=== PATIENT | female | born 1960 | race American Indian/Alaskan Native ===

== ENCOUNTER 2017-08-08 16:20 | Inpatient (IN) | payer OTHER ==
--- NOTE | 2017-08-08 16:33 | PDOC ---
Rapid Medical Evaluation Chief Complaint: Nausea/Vomiting Time Seen by Provider: 08/08/17 16:30 Medical Evaluation: Allergies Allergy/AdvReac Type Severity Reaction Status Date / Time No Known Allergies Allergy Verified 08/08/17 16:29 08/08/17 16:31 The patient presents with a chief complaint of: no urinary complaints, epigastric pain with n/v I have performed a brief in-person evaluation of this patient. Pertinent physical exam findings: vss I have ordered the following: cardiac profile, cbc, comp, lipase, ekg, ua, iv , ivf The patient will proceed to the ED for further evaluation. Discharge Disposition - Diagnosis Epigastric abdominal pain - Referrals - Patient Instructions - Post Discharge Activity
[2017-08-08] MEDS ORDERED: ONDANSETRON 4 MG/2 ML VIAL IVPUSH ONE (16:35)
[2017-08-08] MEDS ORDERED: SODIUM CHLORIDE 1,000 ML IV STA (16:35)
[2017-08-08] MEDS ORDERED: PANTOPRAZOLE SODIUM 40 MG in SODIUM CHLORIDE 100 ML IVPB ONE (16:35)
[2017-08-08 16:36] VITALS: BMI 29.5
--- NOTE | 2017-08-08 16:54 | PDOC ---
Attending Attestation - HPI HPI: 08/08/17 18:12 The patient is a 57 year old female with history of hypertension, hyperlipidemia , borderline DM, ashtma, who presents to the ED complaining of 1 day of RUQ/ epigastric pain that began last night. Abdominal pain is squeezing in nature, intermittent, radiating to the back, ranked 8/10 in intensity, with associated nausea and vomiting x5. She also reports diffuse myalgias and chills. She denies fever. She denies constipation or diarrhea. She denies any chest pain or shortness of breath. - Physicial Exam PE: 08/08/17 18:15 Constitutional: Awake, alert, oriented. No acute distress. Head: Normocephalic. Atraumatic Eyes: PERRL. EOMI. Conjunctivae are not pale. ENT: Mucous membranes are moist and intact. Posterior pharynx without exudates or erythema. Uvula midline. Neck: Supple. Full ROM. No lymphadenopathy. Cardiovascular: Tachycardic rate. Regular rhythm. S1, S2 regular. Distal pulses are 2+ and symmetric. Pulmonary/Chest: No evidence of respiratory distress. Clear to auscultation bilaterally No wheezing, rales or rhonchi. Abdominal: Tenderness to palpation to the RUQ/epigastrium and just over the umbilicus. Soft and non-distended. No rebound, guarding or rigidity. No organomegaly. No palpable masses. Good bowel sounds. Back: No CVA tenderness. Musculoskeletal: No edema. No cyanosis. No clubbing. Full range of motion in all extremities. No calf tenderness. Radial/pedal pulses are intact and 2+ bilaterally Skin: Skin is warm and dry. No petechiae. No purpura. Neurological: Alert and oriented to person, place, and time. Cranial nerves II -XII are grossly intact. Normal speech. Strength is grossly symmetric. No sensory deficits. Psychiatric: Good eye contact. Normal interaction, affect and behavior. - Medical Decision Making 08/08/17 18:20 Documentation prepared by Carmela Ferrell, acting as medical billing specialist for Kathi Vila DO. <Carmela Ferrell - Last Filed: 08/08/17 18:12> - Resident Resident Name: Viviana Martinez - ED Attending Attestation I have performed the following: I have examined & evaluated the patient, The case was reviewed & discussed with the resident, I agree w/resident's findings & plan, Exceptions are as noted - Medical Decision Making 08/08/17 16:54 I, Dr. Kathi Vila, DO, attest that this document has been prepared under my direction and personally reviewed by me in its entirety. I further attest, that it accurately reflects all work, treatment, procedures and medical decision -making performed by me. 08/08/17 18:08 a/p: 57yo female with abd pain assoc with n/v -poss PUD vs gallstones vs pancreatitis vs duodenitis -labs -will start with an ultrasound -medicate for pain along with n/v -pt abd is tender without peritonitis -ivf hydration -will monitor and reassess 08/08/17 21:02 pt with gallstones and sonographic murphys will discuss with surgery and with medicine. pt will be admitted pt updated and agrees with the plan <Kathi Vila - Last Filed: 08/08/17 21:03> Heart Score/ECG Review - ECG Intrepretation Comment:: 08/08/17 18:31 sinus tach at 101, nl axis, nl interval, no acute st/t wave findings <Kathi Vila - Last Filed: 08/08/17 21:03>
--- NOTE | 2017-08-08 16:55 | PDOC ---
History of Present Illness - General Chief Complaint: Nausea/Vomiting Stated Complaint: VOMITING Time Seen by Provider: 08/08/17 16:30 History Source: Patient Exam Limitations: No Limitations - History of Present Illness Initial Comments: This is a 57 YOF with h/o renal stone with lithotripsy last year, HTN, HLD, borderline DM (unmedicated), and asthma who presents with abdominal pain, nausea , and vomiting. The abdominal pain is RUQ and epigastric, radiating to the back , 8/10, squeezing in character, and has been fluctuating since the onset last night. It is relieved after she vomits. She had eaten a healthy dinner a couple of hours prior to the onset of pain (no fried or greasy foods). She had the onset of nausea and vomiting this morning and had five episodes of vomiting food today. She additionally notes head-to-toe body aches and chills, but denies any fever, diarrhea, black or white stool, rectal bleeding, constipation , or burning urination or other urinary symptoms. She has not taken any medications for her symptoms and has never had this kind of pain before. Past History - Past Medical History Allergies/Adverse Reactions: Allergies Allergy/AdvReac Type Severity Reaction Status Date / Time No Known Allergies Allergy Verified 08/08/17 16:29 Home Medications: Ambulatory Orders NK [No Known Home Medication] 08/08/17 CVA: No COPD: No DVT: No HTN: Yes Hypercholesterolemia: Yes Other medical history: Vertigo - Surgical History Cholecystectomy: No (Gallstones) - Immunization History Immunization Up to Date: Yes - Suicide/Smoking/Psychosocial Hx Smoking History: Current every day smoker Number of Cigarettes Smoked Daily: 22 Information on smoking cessation initiated: No Hx Alcohol Use: No Drug/Substance Use Hx: No Substance Use Type: None *Physical Exam - Vital Signs Last Vital Signs Temp Pulse Resp BP Pulse Ox 98.3 F 114 H 125/82 99 08/08/17 16:30 08/08/17 16:30 08/08/17 16:30 08/08/17 16:30 ED Treatment Course - LABORATORY CBC & Chemistry Diagram: 08/08/17 16:30 08/08/17 16:30 Medical Decision Making - Medical Decision Making 57 YOF with h/o who p/w epigastric pain, n/v. Tachycardic to 114 on triage vitals but otherwise VS wnl. DDX IBNLT gallstones/cholecystitis wwo pancreatitis, PUD, gastritis, UTI/ pyelonephritis, AAA, etc. Ordered by RME is CBCD, CMP, lipase, UA, cardiac profile, EKG. 08/08/17 17:45 Ordered is US gallbladder r/o cholecystitis, also 2 mg morphine IVP. CBCD results with WBC in the 15k's, alk phos elevated to 124, lipase negative. 08/08/17 20:37 Patient's US results with cholelithiasis and +sonographic Douglas's sign. Surgery call or contact centre team leader is paged. Patient notes that her PMD is Dr. David (not in our system). Will speak with Dr. Manzo for admission. 08/08/17 20:[address] Douglas who will see the patient for cholecystectomy tomorrow. Spoke with Dr. Manzo who admits to obe med/surg. Ordered is NPO status and 1 gm ceftriaxone IVPB. *DC/Admit/Observation/Transfer Diagnosis at time of Disposition: Cholecystitis - Discharge Dispostion Condition at time of disposition: Guarded Admit: Yes - Referrals - Patient Instructions - Post Discharge Activity
[2017-08-08 17:05] LABS: BASOPHIL 0.5 % (0-2.0); MCHC 33.4 g/dl (32.0-36.0); MEAN CELL VOLUME 86.6 fl (80-96); MEAN PLT VOLUME 8.9 fl (7.5-11.1); NEUTROPHILS 88.3 % (42.8-82.8); PLATELET COUNT 281 K/MM3 (134-434); WHITE BLOOD COUNT 15.5 K/mm3 (4.0-10.0)
[2017-08-08] MEDS ORDERED: PANTOPRAZOLE SODIUM 40 MG/100 ML BAG IVPB ONE (17:20)
[2017-08-08] MEDS ORDERED: ONDANSETRON 4 MG/2 ML VIAL ONE (17:21)
[2017-08-08 17:36] LABS: ALBUMIN 3.9 g/dl (3.4-5.0); ALK PHOS 124 U/L (45-117); ANION GAP 9 (8-16); BILIRUBIN,TOTAL 0.8 mg/dL (0.2-1.0); CO2 24 mmol/L (21-32); CREATININE 0.9 mg/dL (0.55-1.02); GLUCOSE,RANDOM 101 mg/dL (74-106); SGPT/ALT 26 U/L (12-78); TOT PROT 7.8 g/dl (6.4-8.2)
[2017-08-08 17:40] LABS: CPK 96 IU/L (26-192); TROPONIN I < 0.02 ng/ml (0.00-0.05)
[2017-08-08 17:41] LABS: SGOT/AST 19 U/L (15-37)
[2017-08-08] MEDS ORDERED: morphine CARPU-JECT 4 MG/1 ML DISP.SYRIN IVPUSH ONE (17:43)
[2017-08-08] MEDS ORDERED: morphine SULFATE 4 MG/ML VIAL ONE (17:58)
[2017-08-08 19:52] LABS: URINE APPEARANCE SLCLOUDY; URINE BILIRUBIN NEGATIVE (NEGATIVE); URINE BLOOD NEGATIVE (NEGATIVE); URINE COLOR LTYELLOW; URINE GLUCOSE (UA) NEGATIVE (NEGATIVE); URINE KETONE NEGATIVE (NEGATIVE); URINE NITRITE NEGATIVE (NEGATIVE); URINE PROTEIN NEGATIVE (NEGATIVE); URINE UROBILINOGEN NEGATIVE mg/dL (0.2-1.0)
[2017-08-08 20:14] LABS: URINE LEUK ESTERASE 1+ (NEGATIVE)
[2017-08-08 20:15] LABS: URINE BACTERIA RARE /hpf (NONE SEEN); URINE MUCUS RARE; URINE RBC 4 /hpf (0-3); URINE WBC 5 /hpf (3-5)
[2017-08-08] MEDS ORDERED: LEVOFLOXACIN 750 MG IVPB 750 MG/150 ML BAG IVPB ONE (20:51)
[2017-08-08] MEDS ORDERED: PIPERACILLIN/TAZOB 4.5 GM/100 ML PRE-DOCKED IVPB ONE (20:51)
[2017-08-08] MEDS ORDERED: SODIUM CHLORIDE 0.9% 1000 ML INFUS.BAG IV ONE (21:01)
[2017-08-08] MEDS ORDERED: METOCLOPRAMIDE HCL INJECTION 10 MG/2 ML VIAL IVPUSH ONE (21:01)
[2017-08-08] MEDS ORDERED: CEFTRIAXONE 1 GM in DEXTROSE 5%-WATER - 50 ML IVPB ONE (21:03)
[2017-08-08] MEDS ORDERED: METOCLOPRAMIDE HCL INJECTION 10 MG/2 ML VIAL ONE (21:36)
[2017-08-08] MEDS ORDERED: CEFTRIAXONE 1 GM/50 ML BAG ONE (21:37)
--- NOTE | 2017-08-08 22:33 | HP ---
Admitting History and Physical - Primary Care Physician PCP: Sunil Manzo - Admission History of Present Illness: 57 YOF with h/o renal stone with lithotripsy last year, HTN, HLD, borderline DM (unmedicated), and asthma who presents with abdominal pain, nausea, and vomiting. The abdominal pain is RUQ and epigastric, radiating to the back, 8/10 , squeezing in character, and has been fluctuating since the onset last night. It is relieved after she vomits. She had eaten a healthy dinner a couple of hours prior to the onset of pain (no fried or greasy foods). She had the onset of nausea and vomiting this morning and had five episodes of vomiting food today.no fever or chills - Past Medical History Cardiovascular: Yes: HTN, Hyperlipdemia Endocrine: Yes: Diabetes Mellitus - Smoking History Smoking history: Current every day smoker Aproximately how many cigarettes per day: 22 - Alcohol/Substance Use Hx Alcohol Use: No Home Medications - Allergies Allergies/Adverse Reactions: Allergies Allergy/AdvReac Type Severity Reaction Status Date / Time No Known Allergies Allergy Verified 08/08/17 16:29 - Home Medications Home Medications: Ambulatory Orders Albuterol Sulfate Inhaler - [Ventolin HFA Inhaler -] 1 puff IH TID 08/09/17 Aspirin [[place] Aspirin] 81 mg PO DAILY 08/09/17 Atorvastatin Ca [Lipitor] 20 mg PO DAILY 08/09/17 Bupropion HCl [Wellbutrin Sr] 150 mg PO DAILY 08/09/17 Cyanocobalamin (Vitamin B-12) [Vitamin B12] 5,000 mcg DAILY 08/09/17 Ibuprofen 400 mg PO PRN 08/09/17 Lisinopril [Prinivil] 5 mg PO DAILY 08/09/17 Meclizine HCl 25 mg PO TID PRN 08/09/17 Physical Examination Vital Signs: Vital Signs Temperature 98.3 F 08/08/17 16:30 Pulse Rate 114 H 08/08/17 16:30 Respiratory Rate Blood Pressure 125/82 08/08/17 16:30 O2 Sat by Pulse Oximetry (%) 99 08/08/17 16:30 Constitutional: Yes: No Distress HENT: Yes: Atraumatic Neck: Yes: Supple Cardiovascular: Yes: Regular Rate and Rhythm Respiratory: Yes: CTA Bilaterally Gastrointestinal: Yes: Normal Bowel Sounds, Tenderness (ruq) Extremities: Yes: WNL Neurological: Yes: Alert, Oriented Labs: CBC, BMP 08/08/17 16:30 08/08/17 16:30 Imaging - Results Ultrasound: Report Reviewed Problem List - Problems (1) Cholecystitis Assessment/Plan: npo ivf, iv abx..emperic prn pain meds surgery consult Code(s): K81.9 - CHOLECYSTITIS, UNSPECIFIED Assessment/Plan Laboratory Tests 08/08/17 08/08/17 08/08/17 16:30 16:30 16:30 WBC 15.5 H RBC 5.04 Hgb 14.6 Hct 43.6 MCV 86.6 MCH 29.0 MCHC 33.4 RDW 14.0 Plt Count 281 MPV 8.9 Neutrophils % 88.3 H Lymphocytes % 7.9 L Monocytes % 2.3 L Eosinophils % 1.0 Basophils % 0.5 Sodium 136 Potassium 4.3 Chloride 103 Carbon Dioxide 24 Anion Gap 9 BUN 17 Creatinine 0.9 Creat Clearance w eGFR > 60 Random Glucose 101 Calcium 9.0 Total Bilirubin 0.8 AST 19 ALT 26 Alkaline Phosphatase 124 H Creatine Kinase 96 Troponin I < 0.02 Total Protein 7.8 Albumin 3.9 Lipase 115 Urine Color Urine Appearance Urine pH Ur Specific [place] Urine Protein Urine Glucose (UA) Urine Ketones Urine Blood Urine Nitrite Urine Bilirubin Urine Urobilinogen Urine WBC (Auto) Urine RBC (Auto) Ur Epithelial Cells Urine Bacteria Urine Mucus 08/08/17 19:37 WBC RBC Hgb Hct MCV MCH MCHC RDW Plt Count MPV Neutrophils % Lymphocytes % Monocytes % Eosinophils % Basophils % Sodium Potassium Chloride Carbon Dioxide Anion Gap BUN Creatinine Creat Clearance w eGFR Random Glucose Calcium Total Bilirubin AST ALT Alkaline Phosphatase Creatine Kinase Troponin I Total Protein Albumin Lipase Urine Color Ltyellow Urine Appearance Slcloudy Urine pH 7.0 Ur Specific [place] 1.019 Urine Protein Negative Urine Glucose (UA) Negative Urine Ketones Negative Urine Blood Negative Urine Nitrite Negative Urine Bilirubin Negative Urine Urobilinogen Negative Urine WBC (Auto) 5 Urine RBC (Auto) 4 Ur Epithelial Cells Rare Urine Bacteria Rare Urine Mucus Rare Active Medications Generic Name Dose Route Start Last Admin Trade Name Freq PRN Reason Stop Dose Admin Hydromorphone HCl 1 mg 08/08/17 22:34 Dilaudid Injection - IVPB Q3H PRN PAIN Ceftriaxone Sodium 1 gm/ 100 mls @ 200 mls/hr 08/09/17 10:00 Dextrose IVPB 08/09/17 11:59 DAILY RAKESH Sodium Chloride 1,000 mls @ 100 mls/hr 08/08/17 22:45 Normal Saline - IV ASDIR RAKESH
[2017-08-08] MEDS ORDERED: SODIUM CHLORIDE 1,000 ML IV SCH (22:45)
[2017-08-08 23:19] LABS: INR 1.05 (0.82-1.09); PROTHROMBIN TIME (PATIENT) 11.9 SEC (9.98-11.88)
[2017-08-09] MEDS ORDERED: HYDROmorphone HCL CARPU-JECT 1 MG/1 ML DISP.SYRIN ONE (01:45)
[2017-08-09] MEDS: HYDROmorphone HCL CARPU-JECT 2 MG/1 ML DISP.SYRIN IVPB PRN ×2 (01:51→15:55)
[2017-08-09] MEDS ORDERED: ACETAMINOPHEN 325 MG TABLET (FP) PO PRN ×3 (07:12→17:04)
[2017-08-09 07:33] LABS: BASOPHIL 0.3 % (0-2.0); EOSINOPHIL 1.2 % (0-4.5); MCH 29.4 pg (25.7-33.7); MCHC 33.5 g/dl (32.0-36.0); MEAN CELL VOLUME 87.6 fl (80-96); MEAN PLT VOLUME 8.9 fl (7.5-11.1); NEUTROPHILS 63.3 % (42.8-82.8); PLATELET COUNT 242 K/MM3 (134-434); RDW 13.7 % (11.6-15.6)
[2017-08-09 07:56] LABS: INR 1.1 (0.82-1.09); PROTHROMBIN TIME (PATIENT) 12.4 SEC (9.98-11.88)
[2017-08-09 08:02] LABS: CALCIUM 8.2 mg/dL (8.5-10.1)
[2017-08-09 08:08] LABS: ALK PHOS 95 U/L (45-117); ANION GAP 6 (8-16); BILIRUBIN,TOTAL 0.7 mg/dL (0.2-1.0); CO2 25 mmol/L (21-32); CREATININE 0.8 mg/dL (0.55-1.02); GLUCOSE,RANDOM 94 mg/dL (74-106); SGOT/AST 10 U/L (15-37); SGPT/ALT 19 U/L (12-78); TOT PROT 6.2 g/dl (6.4-8.2)
--- NOTE | 2017-08-09 08:34 | CONSULT ---
- Consultation REQUESTING PROVIDER: Dr. Douglas CONSULT REQUEST: We have been asked to surgically evaluate this patient for cholelithiasis PCP:Sunil Manzo HISTORY OF PRESENT ILLNESS: The patient is a 57 yo female who presented with nausea and non-bloody emesis. Her symptoms began yesterday in the am. She denies any CP/SOB. She does have a headache this am, which she has occasional and was treated with tylenol. PMHx: HTN, High cholesterol, tinnitus, asthma, kidney stones PSHx: ?tonsillectomy, procedure for a kidney stone at [facility] Home Medications Medication Instructions Recorded NK [No Known Home Medication] 08/08/17 Allergies Allergy/AdvReac Type Severity Reaction Status Date / Time No Known Allergies Allergy Verified 08/08/17 16:29 REVIEW OF SYSTEMS: CONSTITUTIONAL: Absent: fever, chills CARDIOVASCULAR: Absent: chest pain, syncope, palpitations RESPIRATORY: Absent: cough, shortness of breath, wheezing GASTROINTESTINAL: Present: abdominal pain, nausea. GENITOURINARY: Absent: dysuria, frequency MUSCULOSKELETAL: Absent: myalgia, arthralgia Present: trigger finger b/l middle index SKIN: Absent: rash, itching, pallor HEMATOLOGIC/IMMUNOLOGIC: Abssent: easy bleeding, easy bruising, lymphadenopathy NEUROLOGIC: Present: headache Absent: paresthesias, dizziness bladder or bowel incontinence PHYSICAL EXAM: GENERAL: Awake, alert, and fully oriented, in no acute distress. HEAD: Normal with no signs of trauma. EYES: sclera anicteric, conjunctiva clear. NECK: Normal ROM, supple without lymphadenopathy, JVD, or masses. LUNGS: Clear to auscultation bilat anteriorly. No wheezes, and no crackles. HEART: Regular rate and rhythm. No murmurs ABDOMEN: Soft, tender in the epigastrium, RUQ pain with palpation, not distended MUSCULOSKELETAL: Normal ROM at all joints. No bony deformities or tenderness. No CVA tenderness. UPPER EXTREMITIES: 2+ pulses, warm, well-perfused. b/l middle index trigger finger. LOWER EXTREMITIES: 2+ pulses, warm, well-perfused. No calf tenderness. No peripheral edema. NEUROLOGICAL: Normal speech, gait not observed. PSYCH: Cooperative. Good eye contact. Appropriate mood and affect. SKIN: Warm, dry, normal turgor. Vital Signs Temperature 98.4 F 08/09/17 06:00 Pulse Rate 100 H 08/09/17 06:00 Respiratory Rate 18 08/09/17 06:00 Blood Pressure 146/72 08/09/17 06:00 O2 Sat by Pulse Oximetry (%) 96 08/09/17 06:34 Lab Results WBC 9.0 K/mm3 (4.0-10.0) D 08/09/17 07:20 RBC 4.33 M/mm3 (3.60-5.2) 08/09/17 07:20 Hgb 12.7 GM/dL (10.7-15.3) D 08/09/17 07:20 Hct 37.9 % (32.4-45.2) 08/09/17 07:20 MCV 87.6 fl (80-96) 08/09/17 07:20 MCHC 33.5 g/dl (32.0-36.0) 08/09/17 07:20 RDW 13.7 % (11.6-15.6) 08/09/17 07:20 Plt Count 242 K/MM3 (134-434) 08/09/17 07:20 Sodium 137 mmol/L (136-145) 08/09/17 07:20 Potassium 3.8 mmol/L (3.5-5.1) 08/09/17 07:20 Chloride 106 mmol/L (98-107) 08/09/17 07:20 Carbon Dioxide 25 mmol/L (21-32) 08/09/17 07:20 Anion Gap 6 (8-16) L 08/09/17 07:20 BUN 12 mg/dL (7-18) D 08/09/17 07:20 Creatinine 0.8 mg/dL (0.55-1.02) 08/09/17 07:20 Random Glucose 94 mg/dL (74-106) 08/09/17 07:20 Calcium 8.2 mg/dL (8.5-10.1) L 08/09/17 07:20 Blood Type O POSITIVE 08/09/17 01:35 Antibody Screen Negative 08/08/17 22:44 INR 1.05 (0.82-1.09) 08/08/17 22:44 US: stones, no evidence of acute jose roberto Problem List - Problems (1) Cholecystitis Assessment/Plan: Pt with cholelithiasis, plan for lap jose roberto today. She remains npo/iv hydration Medical clearance for the operating room today She received rocephin at 9 pm last night Code(s): K81.9 - CHOLECYSTITIS, UNSPECIFIED Visit type - Case Type Case Type: ED Admission - Emergency Emergency Visit: Yes ED Registration Date: 08/08/17 Care time: The patient presented to the Emergency Department on the above date and was hospitalized for further evaluation of their emergent condition. - New patient This patient is new to me today: Yes Date on this admission: 08/09/17
[2017-08-09] MEDS ORDERED: CEFTRIAXONE 1 G/50 ML PREMIX 50 ML IVPB SCH (10:00)
--- NOTE | 2017-08-09 10:39 | EKG ---
Test Reason : Blood Pressure : / mmHG Vent. Rate : 101 BPM Atrial Rate : 101 BPM P-R Int : 170 ms QRS Dur : 070 ms QT Int : 334 ms P-R-T Axes : 066 050 028 degrees QTc Int : 433 ms POOR DATA QUALITY, INTERPRETATION MAY BE ADVERSELY AFFECTED SINUS TACHYCARDIA NONSPECIFIC ST ABNORMALITY LOW VOLTAGE QRS BORDERLINE ECG NO PREVIOUS ECGS AVAILABLE Confirmed by MD GAGAN, ROBERTO ([id number]) on 08/09/2017 10:39:11 AM Referred By: Confirmed By:ROBERTO FARAH MD
--- NOTE | 2017-08-09 11:36 | CON.CARD ---
Cardiology Consult (text) - Consultation Consultation Note: CC: cholecystitis 57 yo smoker with h/o HTN, HLD, renal stone with lithotripsy last year, borderline DM (unmedicated), vertigo and asthma who presents with abdominal pain and concern for cholecystitis --> plan for surgery. + nausea, and vomiting. 5 episodes of vomiting since sx's started this am. The abdominal pain is RUQ and epigastric, radiating to the back, 8/10, squeezing in character, and has been fluctuating since the onset last night. It is relieved after she vomits. She had eaten a healthy dinner a couple of hours prior to the onset of pain (no fried or greasy foods). + body aches and chills, but denies any fever, diarrhea, black or white stool, rectal bleeding, constipation, or burning urination or other urinary symptoms. no cp, sob, orthopnea, pnd, le edema, palps, dizziness, transient neurologic sx' s. No h/o insulin use, ckd, cad, chf, tia/cva. Patient taken to surgery today. --> no complications. received 1300 cc of fluids. Since surgery. + mild discomfort. + dizziness. pmhx/pshx: per hi social hx: + tobacco fam hx: no premature cad ros: per hpi Ambulatory Orders Albuterol Sulfate Inhaler - [Ventolin Hfa Inhaler -] 1 puff IH TID 08/09/17 Aspirin [[place] Aspirin] 81 mg PO DAILY 08/09/17 Atorvastatin Ca [Lipitor] 20 mg PO DAILY 08/09/17 Bupropion HCl [Wellbutrin Sr] 150 mg PO DAILY 08/09/17 Cyanocobalamin (Vitamin B-12) [Vitamin B12] 5,000 mcg DAILY 08/09/17 Ibuprofen 400 mg PO PRN 08/09/17 Lisinopril [Prinivil] 5 mg PO DAILY 08/09/17 Meclizine HCl 25 mg PO TID PRN 08/09/17 Current Medications Acetaminophen (Tylenol -) 650 mg PO Q6H PRN PRN Reason: FEVER OR PAIN Last Admin: 08/09/17 07:20 Dose: 650 mg Hydromorphone HCl (Dilaudid Injection -) 1 mg IVPB Q3H PRN PRN Reason: PAIN Last Admin: 08/09/17 01:51 Dose: 1 mg CEFTRIAXONE 1 G/50 ML PREMIX (Ceftriaxone 1 Gm-D5w Bag) 50 mls @ 100 mls/hr IVPB DAILY [facility] Last Admin: 08/09/17 10:08 Dose: 100 mls/hr Sodium Chloride (Normal Saline -) 1,000 mls @ 100 mls/hr IV ASDIR [facility] Last Admin: 08/08/17 23:20 Dose: 100 mls/hr Vital Signs - 24 hr 08/08/17 08/08/17 08/09/17 16:30 22:36 02:10 Temperature 98.3 F 98.6 F 98.4 F Pulse Rate 114 H 104 H Pulse Rate [ 94 H Apical] Respiratory 16 18 Rate Blood Pressure 125/82 152/76 Blood Pressure 131/61 [Left Arm] O2 Sat by Pulse 99 98 Oximetry (%) 08/09/17 08/09/17 06:00 06:34 Temperature 98.4 F Pulse Rate 100 H Pulse Rate [ Apical] Respiratory 18 Rate Blood Pressure 146/72 Blood Pressure [Left Arm] O2 Sat by Pulse 96 Oximetry (%) 08/09/17 08/09/17 08/09/17 14:29 14:45 15:00 Temperature 98.3 F Pulse Rate 94 H 88 89 Respiratory 16 16 16 Rate Blood Pressure 175/94 158/95 160/87 O2 Sat by Pulse 100 96 96 Oximetry (%) 08/09/17 08/09/17 08/09/17 15:15 15:30 15:45 Temperature Pulse Rate 92 H 95 H 92 H Respiratory 16 16 16 Rate Blood Pressure 147/83 162/82 135/79 O2 Sat by Pulse 99 100 98 Oximetry (%) 08/09/17 08/09/17 08/09/17 16:00 16:15 16:30 Temperature Pulse Rate 94 H 92 H 95 H Respiratory 16 16 16 Rate Blood Pressure 134/84 134/84 150/89 O2 Sat by Pulse 99 98 99 Oximetry (%) 08/09/17 08/09/17 08/09/17 16:45 17:00 17:32 Temperature 97.9 F 97.9 F Pulse Rate 93 H 94 H 97 H Respiratory 16 16 18 Rate Blood Pressure 131/90 149/79 150/90 O2 Sat by Pulse 98 99 99 Oximetry (%) Intake & Output 08/07/17 08/08/17 08/09/17 08/10/17 07:59 07:59 07:59 07:59 Intake Total 500 Output Total 1 Balance 499 Weight 165 lb 6.4 oz NAD, calm JVD flat, neck supple ctab, nl effort rrr nl s1, s2 no m/r/g + bs soft mildly tender, nd. ext without e/c/c + dp/pt aaox3 no carotid bruits no jaundice, diaphoresis CBC, BMP 08/09/17 07:20 08/09/17 07:20 Laboratory Tests 08/09/17 07:20 Total Bilirubin 0.7 AST 10 L D ALT 19 D Alkaline Phosphatase 95 D Albumin 3.0 L D 08/08/17 16:30 Creatine Kinase 96 Troponin I < 0.02 Lipase 115 EKG: sinus tachycardia, low voltage qrs. non-specific st-twave abnormality. cxr: wnl 57 yo smoker with h/o HTN, HLD, renal stone with lithotripsy last year, borderline DM (unmedicated), vertigo and asthma who presents with abdominal pain and concern for cholecystitis --> s/p surgery today. cholecystitis s/p surgery today - no complications. - bp slightly elevated, but patient in mild discomfort. will resume anti- hypertensives in the morning. pain control per surgery/pmd. HR reasonably controlled given clinical condition. con't to monitor. htn -as above. hl - consider resuming statin tomorrow if able to take PO + tobacco - cessation counseling.
[2017-08-09 12:09] LABS: URINE LEUK ESTERASE Negative (NEGATIVE)
[2017-08-09] MEDS ORDERED: BUPIVACAINE HCL/PF 0.5% (5MG/ML) 10 ML VIAL ONE (12:55)
[2017-08-09] MEDS ORDERED: MIDAZOLAM HCL 2 MG/2 ML SINGLE DOSE VIAL ONE (13:11)
[2017-08-09] MEDS ORDERED: fentaNYL CITRATE 250 MCG/5 ML VIAL ONE (13:12)
[2017-08-09] MEDS ORDERED: PROPOFOL 20 ML ONE (13:12)
[2017-08-09] MEDS ORDERED: ROCURONIUM BROMIDE 50 MG/5 ML VIAL ONE (13:13)
[2017-08-09] MEDS ORDERED: BUPIVACAINE HCL/PF 0.5% (5MG/ML) 10 ML VIAL IJ ONE (13:48)
[2017-08-09] MEDS ORDERED: GLYCOPYRROLATE 0.2 MG/1 ML VIAL ONE (14:01)
[2017-08-09] MEDS ORDERED: LIDOCAINE HCL 2% JELLY (5 ML/TUBE) ONE (14:01)
[2017-08-09] MEDS ORDERED: DEXAMETHASONE SOD PHOSPHATE 4 MG/1 ML VIAL ONE (14:01)
[2017-08-09] MEDS ORDERED: NEOSTIGMINE METHYLSULFATE 0.5 MG/ML - 10 ML MDV ONE (14:01)
[2017-08-09] MEDS ORDERED: KETOROLAC TROMETHAMINE 30 MG/1 ML VIAL ONE (14:01)
--- NOTE | 2017-08-09 14:34 | OP ---
Operative Note - Note: Operative Date: 08/09/17 Pre-Operative Diagnosis: acute cholecystitis/cholelithiasis Operation: lap jose roberto Findings: acute cholecystitis/cholelithiasis Post-Operative Diagnosis: Same as Pre-op Surgeon: Shubham Douglas Electric Meter Installer Helper: River Link Anesthesia: General Specimens Removed: gallbladder and contents Estimated Blood Loss (mls): 20
--- NOTE | 2017-08-09 15:27 | SURG ---
Surgery Curing Pickling Packer Note Curing Pickling Packer: River Link PA-C Date of Service: 08/09/17 Diagnosis: acute cholecystitis/cholelithiasis Procedure: Laparoscopic cholecystectomy I was present for the entirety of the operative procedure. For further detail, please refer to operative report. Visit type - Case Type Case Type: ED Admission - New patient This patient is new to me today: Yes Date on this admission: 08/09/17
[2017-08-09] MEDS ORDERED: LABETALOL HCL 5 MG/1 ML (100MG/20 ML VIAL) IVPUSH ONE (15:30)
[2017-08-09] MEDS ORDERED: HYDROmorphone HCL CARPU-JECT 2 MG/1 ML DISP.SYRIN ONE (15:48)
[2017-08-09] MEDS ORDERED: oxyCODONE HCL 5 MG TABLET PO PRN (17:04)
[2017-08-09] MEDS: LACTATED RINGERS SOLUTION 1,000 ML/1,000 ML INFUS.BAG IV SCH ×2 (17:31→23:10)
--- NOTE | 2017-08-09 20:56 | PN ---
Progress Note, Physician History of Present Illness: s/p surgery - Current Medication List Current Medications: Active Medications Acetaminophen (Tylenol -) 650 mg PO Q6H PRN PRN Reason: FEVER OR PAIN Acetaminophen (Tylenol -) 650 mg PO Q6H PRN PRN Reason: PAIN LEVEL 6-10 Lactated Ringer's (Lactated Ringers Solution) 1,000 ml in 1,000 mls @ 75 mls/ hr IV ASDIR RAKESH Last Admin: 08/09/17 17:31 Dose: Not Given Oxycodone HCl (Roxicodone -) 10 mg PO Q6H PRN PRN Reason: PAIN LEVEL 6-10 - Objective Vital Signs: Vital Signs Temperature 97.9 F 08/09/17 17:32 Pulse Rate 97 H 08/09/17 17:32 Respiratory Rate 18 08/09/17 17:32 Blood Pressure 150/90 08/09/17 17:32 O2 Sat by Pulse Oximetry (%) 99 08/09/17 17:32 Constitutional: Yes: No Distress HENT: Yes: Atraumatic Neck: Yes: Supple Cardiovascular: Yes: Regular Rate and Rhythm Respiratory: Yes: CTA Bilaterally Gastrointestinal: Yes: Tenderness (at the surgery site) Extremities: Yes: WNL Neurological: Yes: Alert, Oriented Labs: CBC, BMP 08/09/17 07:20 08/09/17 07:20 INR, PTT INR 1.10 (0.82-1.09) 08/09/17 07:20 Problem List - Problems (1) Cholecystitis Assessment/Plan: s/p surgery prn pain meds on clear liquid diet Code(s): K81.9 - CHOLECYSTITIS, UNSPECIFIED (2) Status post laparoscopic cholecystectomy Code(s): Z90.49 - ACQUIRED ABSENCE OF OTHER SPECIFIED PARTS OF DIGESTIVE TRACT
--- NOTE | 2017-08-10 09:25 | PN ---
Progress Note (short form) - Note Progress Note: Attending Surgeon POD #1 s/p lap jose roberto c/o epigastric port site pain; tolerated diet and voided VSS AF abdomen-soft; port site dressings c/d/i; post op changes are present; o/w negative. IMP: doing well post op PLAN: surgically stable for discharge and f/u in my office 7-10 days post op; d/ w patient and her sister. Shubham Douglas MD FACS
--- NOTE | 2017-08-10 11:52 | DS ---
Physical Examination Vital Signs: Vital Signs Temperature 97.4 F L 08/10/17 10:00 Pulse Rate 95 H 08/10/17 10:09 Respiratory Rate 20 08/10/17 10:09 Blood Pressure 153/89 08/10/17 10:09 O2 Sat by Pulse Oximetry (%) 99 08/10/17 06:00 Constitutional: Yes: No Distress HENT: Yes: Atraumatic Neck: Yes: Supple Cardiovascular: Yes: Regular Rate and Rhythm Respiratory: Yes: CTA Bilaterally Gastrointestinal: Yes: Normal Bowel Sounds, Tenderness (at the surgery site) Extremities: Yes: WNL Neurological: Yes: Alert, Oriented Labs: CBC, BMP 08/09/17 07:20 08/09/17 07:20 Discharge Summary Reason For Visit: CHOLECYSTITIS Current Active Problems Cholecystitis (Acute) Status post laparoscopic cholecystectomy (Acute) Condition: Guarded - Instructions Diet, Activity, Other Instructions: soft low fat diet tylenol for pain as neede see surgeon 1 week No heavy lifting, report any fever 101 or over to MD Referrals: Shubham Douglas MD [Staff Physician] - 1 Week STAFF,NOT ON [Primary Care Provider] - Disposition: HOME - Home Medications Comprehensive Discharge Medication List: Ambulatory Orders Albuterol Sulfate Inhaler - [Ventolin HFA Inhaler -] 1 puff IH TID 08/09/17 Aspirin [[place] Aspirin] 81 mg PO DAILY 08/09/17 Atorvastatin Ca [Lipitor] 20 mg PO DAILY 08/09/17 Bupropion HCl [Wellbutrin Sr] 150 mg PO DAILY 08/09/17 Cyanocobalamin (Vitamin B-12) [Vitamin B12] 5,000 mcg DAILY 08/09/17 Ibuprofen 400 mg PO PRN 08/09/17 Lisinopril [Prinivil] 5 mg PO DAILY 08/09/17 Meclizine HCl 25 mg PO TID PRN 08/09/17 cleared by surgery to be dc home
[2017-08-10] MEDS ORDERED: LISINOPRIL 5 MG TABLET (FP) PO SCH (12:30)
[2017-08-10 15:10] VITALS: BP 136/82; PULSE 92; TEMP 97.5
--- NOTE | 2017-08-12 11:36 | PATH ---
Surgical Pathology Report Patient Name: TIFFANY MAYORGA Med. Rec. #: [id number] /Age/Gender: 1960 (Age: 57) / F Account: [id number] Location: [facility] MED/SURG Taken: 08/09/2017 Received: 08/09/2017 Reported: 08/12/2017 Physicians: MD Sunil Rutledge M.D. Specimen(s) Received GALLBLADDER Clinical History Cholecystitis Final Diagnosis GALLBLADDER, CHOLECYSTECTOMY: CHRONIC CHOLECYSTITIS AND CHOLELITHIASIS. AREA WITH DIVERTICULA FORMATION PRESENT CONSISTENT WITH "ADENOMYOMA". BENIGN PERICYSTIC LYMPH NODE PRESENT. Electronically Signed Tushar Parker M.D. Gross Description Received in formalin, labeled "gallbladder," is a 6.2 x 2.2 x 1.5 cm. gallbladder with a 0.2 cm. in length portion of cystic duct attached. There is a 0.9 cm greatest dimension periductal lymph node present. The outer surface is olivarez-pink and varies from smooth to shaggy. The lumen contains green, tenacious bile as well as a single 0.4 cm in greatest dimension black, irregular cholelith. The mucosa is olivarez-green and velvety. The fundus displays submucosal cystic spaces. The wall of the gallbladder averages 0.2 cm. in thickness. Clinical Fellow sections are submitted in 2 cassettes as follows: 1-cystic duct margin, periductal lymph node and parts counter representative gallbladder; 2-fundus. 08/09/201708/09/2017
--- NOTE | 2017-08-12 18:57 | OP ---
DATE OF OPERATION: 08/09/2017 PREOPERATIVE DIAGNOSES: 1. Cholelithiasis. 2. Chronic cholecystitis. 3. Biliary colic. POSTOPERATIVE DIAGNOSES: 1. Cholelithiasis. 2. Chronic cholecystitis. 3. Biliary colic. PROCEDURE: Laparoscopic cholecystectomy. SURGEON: Shubham Douglas MD PAD ASSEMBLER: River Link PA-C ANESTHESIA: General. OPERATIVE FINDINGS: Chronic cholecystitis and cholelithiasis. The rest of the findings were unremarkable. DESCRIPTION OF PROCEDURE: The patient was placed on the operating table in the supine position, and after the induction of general anesthesia, the patient's abdomen was prepped with ChloraPrep and draped in sterile fashion. A timeout was taken and pneumoperitoneum established above the umbilicus using a Veress needle to an intraabdominal pressure of 15 mmHg. Additional subxiphoid and right lateral abdominal wall ports were placed and laparoscopy carried out. The gallbladder was placed on cephalad and lateral traction, and dissection was then begun in the hepatocystic triangle where the peritoneum over the distal gallbladder was opened using a combination of blunt dissection and electrocautery. The cystic duct was identified and dissected proximally and distally for length, as was the cystic artery. A critical view of safety was taken, and then, the duct and artery were serially clipped twice distally and twice proximally with large hemoclips. The duct and artery were then divided using the EndoShears. Hemostasis was checked for and noted to be good, and then, the gallbladder was removed from the liver bed in a retrograde fashion using electrocautery. Prior to removal from the edge of the liver, hemostasis was checked for and noted to be good again, and then, the gallbladder was removed from the edge of the liver, placed in a specimen retrieval bag, and the gallbladder brought out through the subxiphoid port. It was sent for pathological examination. Pneumoperitoneum was re-established, and irrigation was carried out and hemostasis verified again. All ports were then removed under laparoscopic vision without evidence of bleeding from the port sites and the pneumoperitoneum evacuated. The port sites were infiltrated with 0.50% Marcaine and closed in all instances using 4-0 Monocryl in a subcuticular continuous fashion, followed by Steri-Strips and Band-Aid dressings. The procedure was terminated at this point, and the patient was transferred to the postanesthesia care unit. ESTIMATED BLOOD LOSS: 20 mL REPLACEMENTS: Crystalloid. DRAINS: None. SPECIMENS: Gallbladder and contents to Pathology. I, Shubham Douglas MD, was physically present in the operating room from the time the patient was placed on the operating table until she was transferred to the postanesthesia care unit in my accompaniment. Shubham Douglas MD [id number] MTDD
== END 2017-08-10 15:40 | disposition home or self-care (01) | DRG 263 ==
LOC: JER 16:20 → JERBED 20:58 → J8W 08-09 02:41 → OBSVTOIN 08-09 18:11
PROVIDERS: ADMIT Internal Medicine; ATTEND Internal Medicine
PROC: 0FT44ZZ Resection of Gallbladder, Percutaneous Endoscopic Approach (ICD-10-PCS; principal; 2017-08-09 12:00)
DX: K80.10 Calculus of gallbladder with chronic cholecystitis without obstruction (principal); I10 Essential (primary) hypertension; E78.5 Hyperlipidemia, unspecified; R73.03 Prediabetes; J45.909 Unspecified asthma, uncomplicated; R10.11 Right upper quadrant pain; F17.210 Nicotine dependence, cigarettes, uncomplicated
CPT/HCPCS: 36415; 71010-TC; 76705-TC; 80053; 81003; 81015; 82550; 83690; 84484; 85025; 85610; 85730; 86850; 86900; 86901; 87086; 88304-TC; 93005; 93010; 99284-25; G0378

== ENCOUNTER 2018-05-18 04:41 | Emergency (ER) | payer OTHER ==
--- NOTE | 2018-05-18 05:23 | PDOC ---
Attending Attestation - Resident Resident Name: Patric Workman - ED Attending Attestation I have performed the following: I have examined & evaluated the patient, The case was reviewed & discussed with the resident, I agree w/resident's findings & plan, Exceptions are as noted - HPI HPI: 05/18/18 05:31 58y F hx of htn, hl, sciatica, asthma presents with atraumatic L leg pain x 1 week, gradually worsening, desribes as a burning type pain in the L lower leg that radiates up her leg worse with lying flat and improved with sitting. No recent trauma/falls. No associated fever/chills, back pain, cp, sob.
[2018-05-18] MEDS ORDERED: GABAPENTIN 300 MG CAPSULE (FP) PO ONE (05:26)
[2018-05-18 05:29] VITALS: BMI 27.3
[2018-05-18] MEDS ORDERED: KETOROLAC TROMETHAMINE 30 MG/1 ML VIAL IVPUSH ONE (05:30)
[2018-05-18] MEDS ORDERED: KETOROLAC TROMETHAMINE 30 MG/1 ML VIAL ONE (05:33)
[2018-05-18] MEDS ORDERED: GABAPENTIN 100 MG CAPSULE (FP) ONE (05:33)
--- NOTE | 2018-05-18 05:36 | PDOC ---
History of Present Illness - General Chief Complaint: Pain, Acute Stated Complaint: RIGHT LEG PAIN Time Seen by Provider: 05/18/18 04:58 History Source: Patient, Family - History of Present Illness Initial Comments: 05/18/18 05:34 58 y/o f with PMH of sciatica, htn, hld came to hospital because of pain in her lateral aspect of right leg which started one week ago and progressively increasing, its 10/10 in intensity, radiate from lower part of leg to upward, increase on lying flat and decrease when she sits, pain in crushing type. denies trauma to keg. Denies skin discolortaion, denies swelling of leg. denies fever and chills. Denies recent travel. Patient also reports numbness on lateral aspect of leg. Denies fecal and urine incontinence. Patient smoked for 15 yeasr about 25 cig a day and stopped one month ago. Past History - Past Medical History Allergies/Adverse Reactions: Allergies Allergy/AdvReac Type Severity Reaction Status Date / Time No Known Allergies Allergy Verified 05/18/18 05:23 Home Medications: Ambulatory Orders Albuterol Sulfate Inhaler - [Ventolin HFA Inhaler -] 1 puff IH TID 08/09/17 Aspirin [[place] Aspirin] 81 mg PO DAILY 08/09/17 Atorvastatin Ca [Lipitor] 20 mg PO DAILY 08/09/17 Bupropion HCl [Wellbutrin Sr] 150 mg PO DAILY 08/09/17 Ibuprofen 400 mg PO PRN 08/09/17 Lisinopril [Prinivil] 5 mg PO DAILY 08/09/17 Meclizine HCl 25 mg PO TID PRN 08/09/17 CVA: No COPD: No DVT: No HTN: Yes Hypercholesterolemia: Yes Kidney Stones: Yes - Surgical History Cholecystectomy: Yes (Gallstones) - Immunization History Immunization Up to Date: Yes - Suicide/Smoking/Psychosocial Hx Smoking History: Never smoked Have you smoked in the past 12 months: No Number of Cigarettes Smoked Daily: 22 Information on smoking cessation initiated: No Hx Alcohol Use: No Drug/Substance Use Hx: No Substance Use Type: None Review of Systems - Review of Systems Constitutional: No: Chills, Fever Respiratory: No: Symptoms reported, Cough, Wheezing Cardiac (ROS): No: Chest Pain, Irregular Heart Rate, Lightheadedness, Palpitations ABD/GI: No: Abdominal Distended, Diarrhea, Vomiting : No: Burning, Dysuria, Discharge Neurological: No: Headache, Numbness *Physical Exam - Vital Signs Last Vital Signs Temp Pulse Resp BP Pulse Ox 97.5 F L 87 16 152/91 98 05/18/18 04:45 05/18/18 04:45 05/18/18 04:45 05/18/18 04:45 05/18/18 04:45 - Physical Exam General Appearance: Yes: Appropriately Dressed HEENT: positive: EOMI Neck: positive: Supple Respiratory/Chest: positive: Lungs Clear, Normal Breath Sounds. negative: Respiratory Distress Cardiovascular: positive: Regular Rhythm, Regular Rate, S1, S2 Gastrointestinal/Abdominal: positive: Soft. negative: Tenderness Extremity: positive: Other (tenderness on lateral aspect of right leg, pain increased on lying flat, leg raise test negative, sensation to fine touch intact , motor strenght 5/5. peripharal pulses palpable no erythema, no calf tenderness. 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 II-XII NML intact, Fully Oriented, Alert, Normal Mood/ Affect, Normal Response, Motor Strength 5/5 ED Treatment Course - LABORATORY CBC & Chemistry Diagram: 05/18/18 05:43 05/18/18 05:43 - RADIOLOGY Radiology Studies Ordered: Category Date Time Status LEG TIB/FIB-RIGHT [RAD] Stat Radiology 05/18/18 05:33 Ordered Medical Decision Making - Medical Decision Making 05/18/18 05:45 58 y/o f with PMH of sciatica, htn, hld came to hospital because of pain in her lateral aspect of right leg which started one week ago and progressively increasing, its 10/10 in intensity, radiate from lower part of leg to upward, increase on lying flat and decrease when she sits, pain in crushing type. denies trauma to keg. Denies skin discolortaion, denies swelling of leg. denies fever and chills. Denies recent travel. Patient also reports numbness on lateral aspect of leg. Denies fecal and urine incontinence. Patient smoked for 15 yeasr about 25 cig a day and stopped one month ago. we will order cbc. cmp xray right leg. cpk, mg, duplex we will give toradol and gabapentin Patient likely have neuropathic pain in distribution of superficial peroneal nerve which can occcur because of entrapment of nerve.
[2018-05-18 06:04] LABS: BASO % 1.6 % (0-2.0); EOS % 2.8 % (0-4.5); HEMATOCRIT 43.1 % (32.4-45.2); HEMOGLOBIN 14.3 GM/dL (10.7-15.3); LYMPH % 44.2 % (8-40); MCHC 33.1 g/dl (32.0-36.0); MEAN CELL VOLUME 87.6 fl (80-96); MONO % 6.6 % (3.8-10.2); NEUT % 44.8 % (42.8-82.8); PLATELET COUNT 281 K/MM3 (134-434); RBC 4.92 M/mm3 (3.60-5.2); RDW 13.9 % (11.6-15.6); WHITE BLOOD COUNT 9.4 K/mm3 (4.0-10.0)
[2018-05-18 06:30] LABS: ANION GAP 7 MMOL/L (8-16); BLOOD UREA NITROGEN 18 mg/dL (7-18); CALCIUM 9.1 mg/dL (8.5-10.1); CHLORIDE 102 mmol/L (98-107); CO2 28 mmol/L (21-32); CREATININE 0.9 mg/dL (0.55-1.3); GLUCOSE,RANDOM 113 mg/dL (74-106); SODIUM 137 mmol/L (136-145)
[2018-05-18 06:43] LABS: POTASSIUM 4.8 mmol/L (3.5-5.1)
[2018-05-18 10:06] VITALS: BP 121/61; PULSE 83; TEMP 97.8
--- NOTE | 2018-05-18 10:31 | PDOC ---
*Physical Exam - Vital Signs Last Vital Signs Temp Pulse Resp BP Pulse Ox 97.8 F 83 17 121/61 99 05/18/18 10:05 05/18/18 10:05 05/18/18 10:05 05/18/18 10:05 05/18/18 10:05 ED Treatment Course - LABORATORY CBC & Chemistry Diagram: 05/18/18 05:43 05/18/18 05:43 - ADDITIONAL ORDERS Additional order review: Laboratory Results 05/18/18 05/18/18 05/18/18 05:43 05:43 05:43 Sodium 137 Potassium 4.8 Chloride 102 Carbon Dioxide 28 Anion Gap 7 L BUN 18 Creatinine 0.9 Creat Clearance w eGFR > 60 Random Glucose 113 H Calcium 9.1 Magnesium 2.1 Creatine Kinase 113 05/18/18 05:43 RBC 4.92 MCV 87.6 MCHC 33.1 RDW 13.9 MPV 9.0 Neutrophils % 44.8 D Lymphocytes % 44.2 H D Monocytes % 6.6 Eosinophils % 2.8 D Basophils % 1.6 - Medications Given in the ED: ED Medications Discontinued Medications Generic Name Dose Route Start Last Admin Trade Name Freq PRN Reason Stop Dose Admin Gabapentin 300 mg 05/18/18 05:26 05/18/18 05:40 Neurontin - PO 05/18/18 05:27 300 mg ONCE ONE Administration Ketorolac Tromethamine 30 mg 05/18/18 05:30 05/18/18 05:40 Toradol Injection - IVPUSH 05/18/18 05:31 30 mg ONCE ONE Administration Medical Decision Making - Medical Decision Making 58 year old female with right leg pain and tingling worse when laying down, better when moving and walking. No DVT on duplex. Tylenol use instructionsSays she feels well enough to go home. Will DC with stretching instructions, activity instructions, follow up, and return precautions. 05/18/18 10:28 *DC/Admit/Observation/Transfer Diagnosis at time of Disposition: Right leg pain - Discharge Dispostion Disposition: HOME Condition at time of disposition: Improved Decision to Admit order: No - Referrals Referrals: [facility] [place] [Provider Group] - Patient Instructions Printed Discharge Instructions: Stretching Routine Before Bedtime May Decrease Nighttime Leg Cramps Additional Instructions: Please follow up with your primary care physician within this week. If you do not have one, please use the group we put on this form. Use Tylenol for your pain along with heat and light movement. Please return to the ED if you have new or worsening symptoms. Print Language: SPA - Post Discharge Activity
[2018-05-18] MEDS ORDERED: ACETAMINOPHEN 325 MG TABLET (FP) ONE ×2 (10:49→10:51)
[2018-05-18] MEDS ORDERED: ACETAMINOPHEN 500 MG TABLET (FP) PO ONE (10:49)
== END 2018-05-18 10:55 | disposition home or self-care (01) ==
LOC: JER 04:41
PROC: 3E0333Z Introduction of Anti-inflammatory into Peripheral Vein, Percutaneous Approach (ICD-10-PCS; principal; 2018-05-18)
DX: M79.604 Pain in right leg (principal)
CPT/HCPCS: 73590-TC-RT-FY; 80048; 82550; 83735; 85025; 93971-TC; 99284-25

== ENCOUNTER 2019-03-17 15:28 | Emergency (ER) | payer OTHER ==
[2019-03-17 15:46] VITALS: BMI 28.0
[2019-03-17] MEDS ORDERED: SODIUM CHLORIDE 1,000 ML IV STA (16:50)
[2019-03-17] MEDS ORDERED: ONDANSETRON 4 MG/2 ML VIAL IVPUSH ONE (16:50)
--- NOTE | 2019-03-17 16:57 | PDOC ---
History of Present Illness - General Chief Complaint: Nausea/Vomiting Stated Complaint: Lightheaded Time Seen by Provider: 03/17/19 15:57 History Source: Patient, Speech Communication Professor Used (Kiswahili) Exam Limitations: Language Barrier (Kiswahili) - History of Present Illness Initial Comments: 03/17/19 17:09 Liz Suarez is a 58 year old Kiswahili-speaking female with PMH R-sided otitis media, HTN, HLD, and asthma presenting with acute onset dizziness. Patient says she suddenly began to feel severe dizziness about 2 hours prior to arrival, to the point where she cannot lift her head. Described as both room- spinning dizziness and sensation of about to pass out, with a pressure inside her head. Says she has had this before when she had a middle ear infection treated with antibiotic ear drops. Has nausea but no vomiting, with sweating. Was prescribed some vertigo medication by her doctor, but does not recall the name. Able to walk but says she is unsteady on her feet. Denies fever, cough, SOB, chest pain, abd pain. Has urinary sx of burning and pain, was treated outpatient with Abx but pain persists with urination. Only reported medication is unknown vertigo medication. Formerly on an anti- hypertensive but told by her MD that it was okay to stop. Borderline diabetic. Timing/Duration: 1-3 hours Severity: severe Past History - Past Medical History Allergies/Adverse Reactions: Allergies Allergy/AdvReac Type Severity Reaction Status Date / Time No Known Allergies Allergy Verified 05/18/18 05:23 Home Medications: Ambulatory Orders Albuterol Sulfate Inhaler - [Ventolin HFA Inhaler -] 1 puff IH TID 08/09/17 Aspirin [[place] Aspirin] 81 mg PO DAILY 08/09/17 Atorvastatin Ca [Lipitor] 20 mg PO DAILY 08/09/17 Bupropion HCl [Wellbutrin Sr] 150 mg PO DAILY 08/09/17 Ibuprofen 400 mg PO PRN 08/09/17 Lisinopril [Prinivil] 5 mg PO DAILY 08/09/17 Meclizine HCl 25 mg PO TID PRN 08/09/17 Nitrofurantoin Monohyd/M-Cryst [Macrobid -] 100 mg PO BID 5 Days #10 capsule CVA: No COPD: No DVT: No HTN: Yes Hypercholesterolemia: Yes Kidney Stones: Yes Other medical history: Vertigo - Surgical History Cholecystectomy: Yes (Gallstones) - Immunization History Immunization Up to Date: Yes - Suicide/Smoking/Psychosocial Hx Smoking History: Unknown if ever smoked Have you smoked in the past 12 months: No Number of Cigarettes Smoked Daily: 22 Information on smoking cessation initiated: No Hx Alcohol Use: No Drug/Substance Use Hx: No Substance Use Type: None Review of Systems - Review of Systems Able to Perform ROS?: Yes (translated from Kiswahili) Is the patient limited Polish proficient: Yes Constitutional: Yes: Diaphoresis. No: Chills, Fever, Weakness HEENTM: No: Blurred Vision, Nose Pain, Hearing Loss, Throat Pain, Throat Swelling Respiratory: No: Cough, Shortness of Breath Cardiac (ROS): Yes: Lightheadedness. No: Chest Pain, Edema, Palpitations, Syncope ABD/GI: Yes: Nausea. No: Constipated, Diarrhea, Difficulty Swallowing, Vomiting , Abdominal cramping : Yes: Burning, Dysuria. No: Discharge, Frequency, Flank Pain, Hematuria Musculoskeletal: No: Muscle Pain, Muscle Weakness Integumentary: No: Dryness, Erythema Neurological: Yes: Headache. No: Numbness, Paresthesia, Tingling Endocrine: No: Symptoms Reported Hematologic/Lymphatic: No: Symptoms Reported All Other Systems: Reviewed and Negative *Physical Exam - Vital Signs Last Vital Signs Temp Pulse Resp BP Pulse Ox 97.6 F 87 11 158/98 98 03/17/19 15:35 03/17/19 15:35 03/17/19 15:35 03/17/19 15:35 03/17/19 15:35 - Physical Exam General Appearance: Yes: Nourished, Mild Distress, Obese HEENT: positive: EOMI, BRENDA, Normal Voice, Pharynx Normal, TM Erythema (some L TM erythema around the malleus, R TM grossly normal). negative: Scleral Icterus (R), Scleral Icterus (L), Muffled/Hoarse voice, Pharyngeal Erythema, Tonsillar Exudate, Sinus Tenderness Neck: positive: Trachea midline, Supple. negative: Tender, Lymphadenopathy (R) , Lymphadenopathy (L) Respiratory/Chest: positive: Lungs Clear, Normal Breath Sounds. negative: Chest Tender, Respiratory Distress Cardiovascular: positive: Regular Rhythm, Regular Rate. negative: Murmur, Gallop/S3, Gallop/S4 Gastrointestinal/Abdominal: positive: Normal Bowel Sounds, Tender (suprapubic tenderness to deep palpation, negative alves sign, negative CVA tenderness), Soft. negative: Organomegaly, Pulsatile Mass Musculoskeletal: positive: Normal Inspection Extremity: positive: Normal Capillary Refill, Normal Inspection, Normal Range of Motion. negative: Tender Integumentary: positive: Normal Color, Dry, Warm Neurologic: positive: Fully Oriented, Alert, Normal Mood/Affect, Normal Response ED Treatment Course - LABORATORY CBC & Chemistry Diagram: 03/17/19 16:58 03/17/19 16:58 Medical Decision Making - Medical Decision Making 03/17/19 17:23 Liz Suarez is a 58 year old Kiswahili-speaking female with PMH R-sided otitis media, HTN, HLD, and asthma presenting with acute onset dizziness. Concern is high for otitis media of R ear vs. BPPV vs. acute neurological complaint such as posterior stroke. Given patient complaining of R sided ear pain and has some minor inflammation of the TM, most likely otitis media. Will assess via CBC, CMP, and will give Zofran IV and 1L NS fluids for nausea. Pt also complaining of UTI sx, will get UA and UC for evaluation. 03/17/19 18:49 UA does not show significant infection, but given pt sx will give 5 days Macrobid 100mg bid for presumptive UTI. 03/17/19 19:[address] Garcia *DC/Admit/Observation/Transfer Diagnosis at time of Disposition: Dizziness, UTI (urinary tract infection) - Discharge Dispostion Disposition: HOME Condition at time of disposition: Improved Decision to Admit order: No - Prescriptions Prescriptions: Nitrofurantoin Monohyd/M-Cryst [Macrobid -] 100 mg PO BID 5 Days #10 capsule - Referrals - Patient Instructions Printed Discharge Instructions: DI for Urinary Tract Infection (UTI) Additional Instructions: Today you were evaluated for dizziness. We checked out your blood for any signs of infection, but we did not find an infection. You mentioned that you had some burning with urination, so we also checked your urine for an infection, and while we did not see any obvious signs of an infection, we are giving you a prescription for antibiotics to help treat one. We also gave you a medication called Zofran to help with your nausea, as well as 1 liter of saline, and you felt better after. Please follow-up with your primary physician in the next few days. If you continue to have nausea, vomiting, worsening dizziness, or new onset fever, abdominal pain, headache, or any other concerning symptoms, please return to an emergency room. - Post Discharge Activity
[2019-03-17] MEDS ORDERED: ONDANSETRON 4 MG/2 ML VIAL ONE (17:08)
[2019-03-17 17:19] LABS: EPI CELLS 2.5 /HPF (0-5/HPF); HYALINE CASTS 0 /lpf (0-8); URINE APPEARANCE CLEAR; URINE BACTERIA 37.9 /hpf (NEGATIVE); URINE BILIRUBIN NEGATIVE (NEGATIVE); URINE COLOR YELLOW; URINE GLUCOSE (UA) NEGATIVE (NEGATIVE); URINE KETONE NEGATIVE (NEGATIVE); URINE LEUK ESTERASE 1+ (NEGATIVE); URINE NITRITE NEGATIVE (NEGATIVE); URINE PROTEIN NEGATIVE (NEGATIVE); URINE RBC 4 /hpf (0-4); URINE UROBILINOGEN 0.2 mg/dL (0.2-1.0); URINE WBC 6 /hpf (0-5)
[2019-03-17 17:22] LABS: BASO % 0.5 % (0-2.0); EOS % 1.6 % (0-4.5); HEMATOCRIT 44.5 % (32.4-45.2); LYMPH % 24.1 % (8-40); MCH 29.3 pg (25.7-33.7); MCHC 33.7 g/dl (32.0-36.0); MEAN CELL VOLUME 86.9 fl (80-96); MEAN PLT VOLUME 8.9 fl (7.5-11.1); MONO % 6.6 % (3.8-10.2); NEUT % 67.2 % (42.8-82.8); PLATELET COUNT 289 K/MM3 (134-434); RBC 5.12 M/mm3 (3.60-5.2); RDW 13.9 % (11.6-15.6)
[2019-03-17 17:42] LABS: ALBUMIN 4.1 g/dl (3.4-5.0); BILIRUBIN,TOTAL 0.6 mg/dL (0.2-1); CALCIUM 9.8 mg/dL (8.5-10.1); CREATININE 0.8 mg/dL (0.55-1.3); POTASSIUM 4.3 mmol/L (3.5-5.1); TOT PROT 7.8 g/dl (6.4-8.2)
[2019-03-17] MEDS ORDERED: diazePAM 5 MG TABLET PO ONE (19:25)
--- NOTE | 2019-03-17 19:25 | PDOC ---
*Physical Exam - Vital Signs Last Vital Signs Temp Pulse Resp BP Pulse Ox 97.6 F 87 11 158/98 98 03/17/19 15:35 03/17/19 15:35 03/17/19 15:35 03/17/19 15:35 03/17/19 15:35 ED Treatment Course - LABORATORY CBC & Chemistry Diagram: 03/17/19 16:58 03/17/19 16:58 - ADDITIONAL ORDERS Additional order review: Laboratory Results 03/17/19 03/17/19 16:58 16:58 Sodium 140 Potassium 4.3 Chloride 106 Carbon Dioxide 30 Anion Gap 4 L BUN 12.0 Creatinine 0.8 Est GFR (CKD-EPI)AfAm 95.52 Est GFR (CKD-EPI)NonAf 82.42 Random Glucose 90 Calcium 9.8 Total Bilirubin 0.6 AST 17 ALT 26 Alkaline Phosphatase 107 Total Protein 7.8 Albumin 4.1 Urine Color Yellow Urine Appearance Clear Urine pH 7.0 D Ur Specific [place] 1.016 Urine Protein Negative Urine Glucose (UA) Negative Urine Ketones Negative Urine Blood Negative Urine Nitrite Negative Urine Bilirubin Negative Urine Urobilinogen 0.2 Ur Leukocyte Esterase 1+ H Urine WBC (Auto) 6 Urine RBC (Auto) 4 Urine Casts (Auto) 0 U Epithel Cells (Auto) 2.5 Urine Bacteria (Auto) 37.9 03/17/19 16:58 RBC 5.12 MCV 86.9 MCHC 33.7 RDW 13.9 MPV 8.9 Neutrophils % 67.2 D Lymphocytes % 24.1 D Monocytes % 6.6 Eosinophils % 1.6 Basophils % 0.5 - Medications Given in the ED: ED Medications Discontinued Medications Generic Name Dose Route Start Last Admin Trade Name Freq PRN Reason Stop Dose Admin Sodium Chloride 1,000 mls @ 1,000 mls/hr 03/17/19 16:50 03/17/19 17:06 Normal Saline - IV 03/17/19 17:49 1,000 mls/hr ASDIR STA Administration Ondansetron HCl 4 mg 03/17/19 16:50 03/17/19 17:07 Zofran Injection IVPUSH 03/17/19 16:51 4 mg ONCE ONE Administration Medical Decision Making - Medical Decision Making 03/17/19 19:21 Sign out received from Dr Chopra. Liz Suarez is a 58yo Danish-speaking woman with a history of Rt otitis media, HTn, HLD, borderline DM, asthma, labyrinthitis v BPV who presents with acute onset dizziness. She additionally endorsed dysuria. ED course so far notable for: - Given zofran, IVF for symptoms - Labs unremarable - UA borderline, but treated as symptomatic. Prescription for macrobid sent Reassessed patient. Was able to eat without any nausea, and ambulated in the ED without difficulty. Still reporting feeling dizzy, especially when turning her head. Reports that she takes meclizine at home, which has never helped her. She tried taking some this morning without improvement in her symptoms. - Given lack of response to meclizine, will try different medication. - PO valium ordered, will reassess. Confirmed that pt will not be driving home. 03/17/19 20:52 - Feels significantly improved - Will d/c home. Pt requesting ENT follow up, will give information for ENT and neurology though her PMD is at [facility] and she may wish to follow up there. She understands and agrees. Discussed home care and return precautions at length. Discussed with Dr Bernardo. Joselin Garcia PGY2 *DC/Admit/Observation/Transfer Diagnosis at time of Disposition: Dizziness UTI (urinary tract infection) Qualifiers: Urinary tract infection type: site unspecified Hematuria presence: without hematuria Qualified Code(s): N39.0 - Urinary tract infection, site not specified - Discharge Dispostion Disposition: HOME Condition at time of disposition: Improved - Prescriptions Prescriptions: Nitrofurantoin Monohyd/M-Cryst [Macrobid -] 100 mg PO BID 5 Days #10 capsule - Referrals Referrals: Brian Duffy MD [Staff Physician] - Nilson Mckinney MD [Staff Physician] - - Patient Instructions Printed Discharge Instructions: DI for Urinary Tract Infection (UTI) Additional Instructions: Discharge Instructions: You were seen in the emergency department for dizziness (vertigo) at home. You had blood and urine tests completed, and the only abnormality was a urinary tract infection. There was no sign of ear infection or other problems. Your symptoms improved with IV fluids and medication. Home Care and Follow Up: - You have been prescribed an antiobitic, nitrofurantoin (Macrobid) for your urinary tract infection. Please take this as prescribed. Complete the entire prescription even if you start to feel better to make sure the infection is completely gone. - You may use your home meclizine for any additional dizziness. You may try taking two tablets for total of 50mg if you do not have improvement with one tablet, but discuss this with the prescribing physician to make sure he/she agrees. - Make sure you are drinking plenty of fluids and staying well hydrated. - You have been given contact information for two specialists for follow up. Dr Duffy is an ENT (ear, nose, and throat) specialist, and Dr Mckinney is a neurologist. Please call them to make follow up appointments within the next week. If you wish to keep all of your doctors at the same hospital, you may ask your regular doctor for referrals at [facility]. - You should see your regular doctor within the next week. Please call to ask about increasing your dose of meclizine. - Seek immediate care if you have worsening symptoms, persistent vomiting, you are unable to eat, you cannot stay hydrated, you have continued dizziness or are unable to walk safely, you develop fever to 101F, or you have any other medical emergency. - Post Discharge Activity
[2019-03-17] MEDS ORDERED: diazePAM 5 MG TABLET ONE (19:35)
[2019-03-17 19:42] VITALS: BP 163/94; PULSE 85; TEMP 97.4
--- NOTE | 2019-03-17 21:25 | PDOC ---
Documentation entered by Kevin Stevens SCRIBE, acting as scribe for Pascale Bernardo MD. Pascale Bernardo MD: This documentation has been prepared by the Rodney sandra Joel, SCRIBE, under my direction and personally reviewed by me in its entirety. I confirm that the documentation accurately reflects all work, treatment, procedures, and medical decision making performed by me. Attending Attestation - Resident Resident Name: Zafar Chopra - ED Attending Attestation I have performed the following: I have examined & evaluated the patient, The case was reviewed & discussed with the resident, I agree w/resident's findings & plan, Exceptions are as noted - HPI HPI: 03/17/19 17:38 The patient is a 58 year old with a significant PMH of otitis media, HTN, hyperlipidemia, and asthma who presents to the emergency department for evaluation of dizziness beginning approximately 2 hours prior to arrival. The patient states she had a sudden onset of dizziness and had trouble keeping her head up, with associated lightheadedness, diaphoresis, and right ear pressure. The patient states she has a history of otitis media for which she has been prescribed ear drops to significant relief. She also states she has taken medication for vertigo in the past which made her dizziness worse. The patient also endorses dysuria. The patient denies chest pain, shortness of breath, and headache. Denies fever, chills, nausea, vomit, diarrhea and constipation. Denies frequency, urgency and hematuria. Allergies: NKA Past surgical history: Cholecystectomy. Social history: Former smoker. No reported alcohol or drug use. - Physicial Exam PE: 03/17/19 19:57 wnwd 59 yo female with c/o dizziness head ncat eyes niko eomi neck supple,no bruits lung cta b/l cvs [id number] abd nontender skin warm and dry ext no edema no flank pain neuro axox3,ambulatory - Medical Decision Making 03/17/19 20:04 pt is ambulatory,no ataxia,no field cuts, no tinnitus , no headache 03/17/19 20:05 labs wnl 03/17/19 21:24 pt feels better and was discharged home imp benign positional vertigo
== END 2019-03-17 21:51 | disposition home or self-care (01) ==
LOC: JER 15:28
PROC: 3E033NZ Introduction of Analgesics, Hypnotics, Sedatives into Peripheral Vein, Percutaneous Approach (ICD-10-PCS; principal; 2019-03-17)
PROC: 3E0337Z Introduction of Electrolytic and Water Balance Substance into Peripheral Vein, Percutaneous Approach (ICD-10-PCS; 2019-03-17)
DX: N39.0 Urinary tract infection, site not specified (principal); H81.11 Benign paroxysmal vertigo, right ear; H66.91 Otitis media, unspecified, right ear; I10 Essential (primary) hypertension; E78.5 Hyperlipidemia, unspecified; J45.909 Unspecified asthma, uncomplicated
CPT/HCPCS: 36415; 80053; 81003; 85025; 87086; 96361; 96374; 99284-25; J7030

== ENCOUNTER 2020-12-11 23:44 | Emergency (ER) | payer OTHER ==
[2020-12-12 00:03] VITALS: TEMP 97.8; BMI 26.4
[2020-12-12] MEDS ORDERED: LIDOCAINE 5% TOPICAL PATCH TP ONE (00:53)
[2020-12-12] MEDS ORDERED: KETOROLAC TROMETHAMINE 30 MG/1 ML VIAL IVPUSH ONE (00:53)
[2020-12-12] MEDS ORDERED: morphine CARPU-JECT 2 MG/1 ML DISP.SYRIN IVPUSH ONE (00:53)
[2020-12-12] MEDS ORDERED: LIDOCAINE 5% TOPICAL PATCH ONE (01:08)
[2020-12-12] MEDS ORDERED: MORPHINE SULFATE 2 MG/ML VIAL ONE (01:08)
[2020-12-12] MEDS ORDERED: KETOROLAC TROMETHAMINE 30 MG/1 ML VIAL ONE (01:08)
[2020-12-12] MEDS ORDERED: METHOCARBAMOL 500 MG TABLET PO ONE (01:20)
[2020-12-12 01:27] LABS: EOS % 1.8 % (0-4.5); HEMATOCRIT 39.9 % (32.4-45.2); HEMOGLOBIN 13.6 GM/dL (10.7-15.3); LYMPH % 37.3 % (8-40); MCH 30.3 pg (25.7-33.7); MCHC 34.1 g/dl (32.0-36.0); MEAN CELL VOLUME 88.9 fl (80-96); MEAN PLT VOLUME 9.2 fl (7.5-11.1); MONO % 6.6 % (3.8-10.2); NEUT % 53.3 % (42.8-82.8); PLATELET COUNT 274 K/MM3 (134-434); RBC 4.48 M/mm3 (3.60-5.2); RDW 13.5 % (11.6-15.6); WHITE BLOOD COUNT 9.8 K/mm3 (4.0-10.0)
[2020-12-12 01:50] LABS: ALBUMIN 3.7 g/dl (3.4-5.0); BLOOD UREA NITROGEN 18.4 mg/dL (7-18); CALCIUM 9.2 mg/dL (8.5-10.1)
[2020-12-12 01:54] LABS: CREATININE 0.9 mg/dL (0.55-1.3)
[2020-12-12 01:55] LABS: BILIRUBIN,TOTAL 0.3 mg/dL (0.2-1); TOT PROT 6.8 g/dl (6.4-8.2)
[2020-12-12] MEDS ORDERED: METHOCARBAMOL 500 MG TABLET ONE (02:25)
[2020-12-12 02:51] LABS: EPI CELLS 8 /uL (0-25.1); HYALINE CASTS 0 /uL (0-3.1); URINE APPEARANCE CLEAR; URINE BACTERIA 50 /uL (0-1359); URINE BILIRUBIN NEGATIVE (NEGATIVE); URINE COLOR YELLOW; URINE GLUCOSE (UA) NEGATIVE (NEGATIVE); URINE KETONE NEGATIVE (NEGATIVE); URINE LEUK ESTERASE 1+ (NEGATIVE); URINE NITRITE NEGATIVE (NEGATIVE); URINE PROTEIN NEGATIVE (NEGATIVE); URINE RBC 10 /uL (0-23.9); URINE UROBILINOGEN 0.2 mg/dL (0.2-1.0); URINE WBC 47 /uL (0-25.8)
[2020-12-12 03:14] VITALS: BP 162/83; PULSE 73
[2020-12-12] MEDS ORDERED: LIDOCAINE PATCH REMOVAL MC ONE (13:00)
== END 2020-12-12 04:13 | disposition home or self-care (01) ==
LOC: JER 23:44
PROC: 3E0333Z Introduction of Anti-inflammatory into Peripheral Vein, Percutaneous Approach (ICD-10-PCS; principal; 2020-12-12)
PROC: 3E033GC Introduction of Other Therapeutic Substance into Peripheral Vein, Percutaneous Approach (ICD-10-PCS; 2020-12-12)
DX: M54.42 Lumbago with sciatica, left side (principal); M54.31 Sciatica, right side
CPT/HCPCS: 36415; 72131-TC; 80053; 81003; 85025; 87086; 99285-25

== ENCOUNTER 2021-01-11 13:34 | Emergency (ER) | payer OTHER ==
[2021-01-11 14:06] VITALS: BP 157/80; PULSE 87; TEMP 98.1; BMI 30.1
[2021-01-11] MEDS ORDERED: KETOROLAC TROMETHAMINE 30 MG/1 ML VIAL IM ONE (15:26)
[2021-01-11] MEDS ORDERED: KETOROLAC TROMETHAMINE 30 MG/1 ML VIAL ONE (15:30)
== END 2021-01-11 17:35 | disposition home or self-care (01) ==
LOC: JERFT 13:34 → JER 13:34 → JERFT 17:35
PROC: 3E0233Z Introduction of Anti-inflammatory into Muscle, Percutaneous Approach (ICD-10-PCS; principal; 2021-01-11)
DX: M54.32 Sciatica, left side (principal)
CPT/HCPCS: 72100-TC-FY; 73030-TC-RT-FY; 99284-25